=== PATIENT | female | born 1970 | race Caucasian/White ===

== ENCOUNTER 2017-03-01 18:23 | Emergency (ER) | payer BC ==
[2017-03-01 19:05] LABS: #Eosinphils 0.1 thou/uL (0.0-0.7); #Lymphocytes 1.8 thou/uL (1.20-3.40); #Monocytes 0.5 thou/uL (0.11-0.59); %Basophils 0.4 % (0.0-1.0); %Eosinophils 0.7 % (0.0-10.0); %Lymphocytes 24.1 % (21.0-51.0); %Monocytes 7.1 % (0.0-10.0); %Neutrophils 67.7 % (42.0-75.0); Hemoglobin 14.4 g/dL (12.0-16.0); Mean Corpuscular HGB CONC 33.4 g/dL (32.0-36.0); Mean Corpuscular Hemoglobin 32.4 pg (27.0-31.0); Mean Corpuscular Volume 97.2 fl (81.0-99.0); Mean Platelet Volume 7.8 fL (7.4-10.4); Platelet Count 243 thou/uL (130-400); RBC Distribution Width 12.3 % (11.5-14.5); Red Blood Cell (RBC) Count 4.43 mill/uL (4.20-5.40); White Blood Cell (WBC) Count 7.4 thou/uL (4.8-10.8)
[2017-03-01 19:14] LABS: PTT 32.8 SEC (22.9-36.1); Prothrombin Time 13.6 SEC (12.0-14.7)
[2017-03-01 19:26] LABS: ALT (SGPT) 15 U/L (8-55); AST (SGOT) 16 U/L (5-34); Albumin 4.2 g/dL (3.5-5.0); Alkaline Phosphatase 80 U/L (40-150); Anion Gap 12 mmol/L (10-20); BUN (Urea Nitrogen) 13 mg/dL (7.0-18.7); Bilirubin, Total 0.4 mg/dL (0.2-1.2); Calc. Creatinine Clearance 0 mL/min (70-130); Calcium 9.3 mg/dL (7.8-10.44); Carbon Dioxide 23 mmol/L (22-29); Chloride 108 mmol/L (98-107); Estimated GFR-MDRD Greater than 90; Globulin 3.1 g/dL (2.4-3.5); Glucose 98 mg/dL (70-105); Potassium 4.2 mmol/L (3.5-5.1); Protein, Total 7.3 g/dL (6.0-8.3); Sodium 139 mmol/L (136-145)
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
[2017-03-01] MEDS ORDERED: Fentanyl 100 MCG/2 ML VIAL ONE (21:04)
[2017-03-01] MEDS ORDERED: Ondansetron ODT 8 MG TAB ONE (21:32)
== END 2017-03-01 21:30 | disposition home or self-care (01) ==
LOC: ERS 18:23
DX: S06.2X0A Diffuse traumatic brain injury without loss of consciousness, initial encounter (principal); F25.9 Schizoaffective disorder, unspecified; W22.8XXA Striking against or struck by other objects, initial encounter
CPT/HCPCS: 36415; 70450; 80053; 85025; 85610; 85730; 96374; J3010

== ENCOUNTER 2017-03-26 22:12 | Emergency (ER) | payer BC ==
[2017-03-26] MEDS ORDERED: Acetaminophen 500 MG TAB ONE (23:19)
--- NOTE | 2017-03-26 23:56 | RAD ---
AP PELVIS AND RIGHT HIP THREE VIEWS: 03/26/17 HISTORY: Right hip pain. Pelvic ring is intact. SI joints are symmetric. No significant joint space narrowing of the right hip . IMPRESSION: Unremarkable right hip. POS: [facility]
--- NOTE | 2017-03-26 23:56 | RAD ---
LEFT SHOULDER THREE VIEWS: 03/26/17 HISTORY: Shoulder pain. There is no signs of fracture or dislocation. IMPRESSION: Negative left shoulder. POS: [facility]
[2017-03-27] MEDS ORDERED: Ketorolac Tromethamine 60 MG/2 ML VIAL ONE (02:55)
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
[2017-03-27] MEDS ORDERED: ISOVUE-370 76%-LOCM 1 ML ONE (12:56)
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
== END 2017-03-27 03:09 | disposition home or self-care (01) ==
LOC: ERS 22:12
DX: M79.1 Myalgia (principal); F25.9 Schizoaffective disorder, unspecified; Y04.0XXA Assault by unarmed brawl or fight, initial encounter
CPT/HCPCS: 70450; 70498; 72125; 96374; J1885

== ENCOUNTER 2017-05-13 19:14 | Emergency (ER) | payer BC ==
[2017-05-13] MEDS ORDERED: HYDROcodone/Acetaminophen 10/325 mg Tablet ONE (20:09)
[2017-05-13] MEDS ORDERED: Ketorolac Tromethamine 60 MG/2 ML VIAL ONE (20:09)
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
== END 2017-05-13 21:07 | disposition home or self-care (01) ==
LOC: ERS 19:14
DX: S33.5XXA Sprain of ligaments of lumbar spine, initial encounter (principal); F25.9 Schizoaffective disorder, unspecified; Z79.891 Long term (current) use of opiate analgesic; Y04.2XXA Assault by strike against or bumped into by another person, initial encounter
CPT/HCPCS: 72100; 96372; 99406; J1885

== ENCOUNTER 2017-05-19 13:39 | Outpatient (CLI) | payer BC ==
[~2017-05-19 13:39] MED LIST: Gadobenate Dimeglumine 529 MG/1 ML (20ML VIAL) ONE
--- NOTE | 2017-05-19 16:23 | RAD ---
FOUR VIEWS LUMBAR SPINE: Indication: Acute low back pain. FINDINGS: There are five lumbar type vertebrae. There is mild multilevel disc degenerative disease most pronoun bg at L4-5 and L5-S1. Spinal alignment is preserved. No abnormal translation of motion is evident. IMPRESSION: Mild to moderate spondylosis of the lumbar spine. POS: [facility]
--- NOTE | 2017-05-19 18:27 | MRI ---
MRI LUMBAR SPINE WITHOUT CONTRAST: INDICATIONS: History of falls. Low back pain. History of lumbar spine surgery. COMPARISON: Lumbar radiograph dated 05/13/2017. TECHNIQUE: Multiplanar, multisequence MR images were obtained of the lumbar spine without IV contrast. FINDINGS: There are five lumbar type vertebrae. The bone marrow signal intensity appears within normal limits. There is loss of normal disk signal and height at L4-L5 and at L5-S1. The conus seems to terminate a t approximately L1-L2. At the L5-S1 level, there is a broad-based bulge with a superimposed central to right paracentral dis k protrusion, causing mild to moderate right lateral recess narrowing. There is also a heterogeneous but predominantly T2 hypointense, T1 intermediate signal intensity lesion seen within the dural spac e, at the L5-S1 level, extending caudad along the posterior aspect of S1, which cannot be fully valdemar cterized. It measures approximately 2.4 cm. There is a broad-based bulge and facet hypertrophy at L 5-S1, inducing severe left and mild to moderate right neural foraminal narrowing. At L4-L5, there is a broad-based bulge with facet joint degenerative change and loss of disk space he ight, inducing mild bilateral neural foraminal narrowing. At L3-L4, there is a broad-based bulge without appreciable central canal or neural foraminal narrowin g. At L2-L3, there is a mild broad-based bulge without appreciable central canal or neural foraminal yolette rowing. At L1-L2, there is no appreciable central canal or neural foraminal narrowing. At T12-L1, there is no appreciable central canal or neural foraminal narrowing. There is a small, benign appearing hemangioma within the right aspect of T12. IMPRESSION: 1. Intradural extramedullary signal abnormality seen within the central canal of L5-S1 and the super ior aspect of S1. This is incompletely characterized. A follow-up MRI of the lumbar spine with and without contrast is recommended for additional characterization. Findings may reflect a solid tumor, such as an epidermoid or meningioma. Schwannoma or sequestered disc fragment cannot be entirely exc luded. Flow void artifact from the cerebrospinal fluid is felt to be less likely. 2. Broad-based bulge with facet hypertrophy at L5-S1, inducing severe left and mild to moderate righ t neural foraminal narrowing. There is a right paracentral protrusion at L5-S1, inducing mild to mod erate right lateral recess narrowing. 3. Mild bilateral neural foraminal narrowing at L4-L5 due to a broad-based bulge, facet hypertrophy, and loss of disk space height. CODE T POS: [facility]
--- NOTE | 2017-05-19 18:49 | MRI ---
BRAIN MRI WITH AND WITHOUT CONTRAST: 05/19/2017 HISTORY: Evaluate hyperdense intracranial lesions in the right frontal lobe, seen on prior CT exam. COMPARISON: None. TECHNIQUE: Multiplanar, multisequence MR imaging of the brain obtained with and without contrast. FINDINGS: The diffusion-weighted imaging demonstrates no evidence for acute infarction. There are three lesions demonstrating prominent blooming artifact on the gradient echo imaging. Two of these lesions are in the region of the frontal horn of the right lateral ventricle, and the third is along the posteromedial aspect of the right frontal region. The largest lesion is the lesion lazaro g the posteromedial aspect of the right frontal lobe, measuring 1 cm in transverse dimension. This l esion demonstrates central T2 and FLAIR hyperintensity with a subtle T2 hyperintense peripheral rim. It is slightly T1 hyperintense on pre-contrast imaging and may demonstrate mild internal enhancement . The two lesions in the region of the frontal horn of the right lateral ventricle measure 7 mm and 8 mm, respectively. Both these lesions demonstrate vague peripheral T1 hypointensity and mild internet project manager al enhancement. Adjacent to these lesions, within the posteromedial aspect of the right frontal lobe , extending into the region of the right lateral ventricle, is a prominent branching vascular structu re, suggesting developmental venous anomaly. The imaged paranasal sinuses and mastoid air cells appear well aerated. Arterial flow voids at the a xial level of the skull base appear grossly unremarkable on the T2-weighted imaging. No midline shif t or mass effect seen. IMPRESSION: Three intraaxial lesions are seen clustered in the right frontal region with adjacent prominent devel opmental venous anomaly. 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 No acute infarction or intracranial hemorrhage noted. POS: [facility]
== END 2017-05-19 13:40 | disposition home or self-care (01) ==
LOC: SCSMRI 13:39
PROVIDERS: ATTEND Surgery
DX: M54.5 Low back pain (principal); G93.9 Disorder of brain, unspecified; M51.87 Other intervertebral disc disorders, lumbosacral region; M47.897 Other spondylosis, lumbosacral region; M99.53 Intervertebral disc stenosis of neural canal of lumbar region; M99.54 Intervertebral disc stenosis of neural canal of sacral region
CPT/HCPCS: 70553; 72110; 72148; A9579

== ENCOUNTER → 2017-06-26 | Day surgery (SDC) | payer BC ==
[~2017-06-26] MED LIST changes: -Gadobenate Dimeglumine 529 MG/1 ML (20ML VIAL) ONE; +Iopamidol-M 200 41% 20 ML VIAL ONE
[2017-06-26 08:02] VITALS: TEMP 98.3
[2017-06-26 08:03] VITALS: BMI 21.6
[2017-06-26 08:07] VITALS: BP 115/72
--- NOTE | 2017-06-26 10:44 | RAD ---
LUMBAR SPINE MYELOGRAM INDICATION: Lumbar radiculopathy. PROCEDURE: After informed consent had been obtained, the patient was escorted to the interventional suite and pl aced on the procedural table. Acid Wash Operator imaging was performed. The patient was placed into a prone posi tion. Skin on the low back was then prepped and draped in the standard sterile fashion and topical a nd regional soft tissue anesthesia was achieved with 1% lidocaine and sodium bicarbonate. L4, left interlaminar approach was selected, and a 22 gauge needle was uneventfully advanced into the thecal s ac with clear color CSF. Subsequently, 10 cc Isovue M 200 was instilled into the thecal sac under re al time fluoroscopy. Appropriate opacification of thecal sac demonstrated with imaging stored for co nfirmation. The needle was then removed from the patient. The patient tolerated the procedure well and was then transferred to CT to undergo subsequent myelogram. Reference separate report for full d etails. FLUORO DATA: 0.3 minutes intermittent fluoroscopy. Dose 33.8 mGy*^m2. IMPRESSION: Technically successful lumbar spine myelogram as detailed above. POS: [facility]
--- NOTE | 2017-06-26 13:13 | MRI ---
THORACIC SPINE MRI WITH AND WITHOUT CONTRAST: INDICATIONS: Back pain. Radiculopathy. Lesion of lumbar spine. FINDINGS: There is no pathologic intramedullary expansion or signal alteration, or enhancement of the thoracic spinal cord. There are incidental mild disk bulges at T5-T6 and at T8-T9, effacing the ventral theca l sac. No acute marrow edema. No significant paraspinal soft tissue edema. IMPRESSION: 1. No pathologic intramedullary signal alteration of the thoracic spinal cord. 2. Incidental disk degenerative disease of the thoracic spine with effacement of the ventral thecal sac. POS: [facility]
--- NOTE | 2017-06-26 13:20 | MRI ---
MRI LUMBAR SPINE WITH AND WITHOUT CONTRAST: CLINICAL HISTORY: Lumbar spine lesion. History of lumbar radiculopathy and pain. COMPARISON: Reference is made to preceding myelogram performed earlier the same day as well as a prior, recent [facility] spine MRI. FINDINGS: There is persistence of abnormal signal alteration centered within the right lateral aspect of the L5 -S1 level vertebral canal. This demonstrates avid, plaque-like, infiltrating morphology of enhanceme nt. This enhancement is separate from a right subarticular disk protrusion, although the enhancement does encase the posterior aspect in addition to extending along the right lateral and posterior colu mn of the vertebral canal. Within the laterally-located abnormal enhancement, there is a punctate fo cus of hypoenhancement. This is favored to reflect a tiny disk sequestration occupying the right lat eral aspect of the vertebral canal, medial to the right L5-S1 facet. Avid enhancement traverses late rally to the right, within the right foramen. No pathologic intramedullary enhancement at the level of conus medullaris. There is degenerative disk disease at L4-5 and L5-S1 with the associated right subarticular disk prot rusion at L5-S1 described above, as well as disk bulge of the L4-5 level. IMPRESSION: Findings most consistent with prominent inflammatory granulation tissue, L5-S1 level, encompassing a punctate focus of hypoenhancement consistent with tiny disk sequestration, separate from right subart icular zone disk protrusion. Constellation of findings does result in moderate mass effect of the te rminal thecal sac with leftward shift of the terminal thecal sac within the vertebral canal. POS: [facility]
--- NOTE | 2017-06-26 13:35 | MRI ---
CERVICAL SPINE MRI WITH AND WITHOUT CONTRAST: INDICATIONS: Lesion of lumbar spine. Back pain. Radiculopathy. FINDINGS: There is no pathological signal alteration, or enhancement, of the cervical spinal cord. There is in cidental note of disk degenerative disease at the C5-C6 level, which results in mild ventral cord fla ttening and mild central canal stenosis, as a result of broad-based disk osteophyte. Focal kyphosis is centered at C5-C6. There are intrinsic foci of T1 hyperintense signal of the regional marrow, favoring interosseous roverto ngiomas. IMPRESSION: 1. No pathologic signal alteration of the cervical spinal cord. 2. Incidental note of degenerative change of the C5-C6 level, resulting in mild ventral cord effacem ent, as a result of disk osteophyte complex. 3. Uncinate process hypertrophy at this level also produces mild left foraminal narrowing and minima l right foraminal narrowing. POS: [facility]
--- NOTE | 2017-06-27 07:26 | CT ---
LUMBAR SPINE CT WITH CONTRAST: CT LUMBAR MYELOGRAM: CLINICAL INDICATIONS: Mass of the vertebral canal with history of lower extremity radiculopathy. FINDINGS: The conus medullaris demonstrates appropriate termination at the L1-L2 level. The vertebral body hei ghts are maintained. There is mild endplate osteophytosis and slight disk degenerative narrowing of the L4-L5 level. There is mild disk space narrowing with gas vacuum phenomenon at L5-S1. A slight d egree of retrolisthesis at L5-S1 is present. From the T12-L1 through the L3-L4 level, there is no significant extrinsic mass effect upon the theca l sac or neural foramina. L4-L5: Broad-based disk bulge results in mild to moderate central canal stenosis. There is mild shanika ateral neural foraminal narrowing. L5-S1: There is a plaque-like filling defect, status post contrast opacification in the thecal sac, which is centered about the right subarticular zone, abutting site of disc protrusion, and spans the AP diameter of the right aspect of the vertebral canal and is inseparable from the adjacent nerve neri ts, with effacement of the right side L5 nerve roots. This produces marked narrowing of the right kaur barticular zone and medial right foraminal zone. There is mild retrolisthesis of L5 on S1. Moderate left foraminal narrowing is present. IMPRESSION: Mass-effect is confirmed at the L5-S1 level, demonstrating an extradural location, effacing adjacent nerve roots and inseparable from medial structures of the traversing right neural foramen. The mass is plaque-like in morphology and does result in mass effect upon the terminal thecal sac, which is di splaced to the left within the vertebral canal. This favors a prominent degree of granulation tissue /inflammatory response. Recommend MRI with Gadolinium contrast to further evaluate the enhancement ch aracteristics. POS: [facility]
== END ==
LOC: RAD 07:10 → EDSTATUS 08:00
PROVIDERS: ATTEND Surgery
PROC: B01B1ZZ Fluoroscopy of Spinal Cord using Low Osmolar Contrast (ICD-10-PCS; principal; 2017-06-26)
DX: M54.16 Radiculopathy, lumbar region (principal); M89.9 Disorder of bone, unspecified; D49.2 Neoplasm of unspecified behavior of bone, soft tissue, and skin; Z79.899 Other long term (current) drug therapy; Z88.2 Allergy status to sulfonamides; Z88.1 Allergy status to other antibiotic agents; Z91.040 Latex allergy status
CPT/HCPCS: 62304; 72132; 72156; 72157; 72158

== ENCOUNTER 2017-06-27 22:34 | Emergency (ER) | payer BC | END 2017-06-28 00:09 | disposition home or self-care (01) | LOC: ERS 22:34 | DX: S16.1XXA Strain of muscle, fascia and tendon at neck level, initial encounter (principal); S20.311A Abrasion of right front wall of thorax, initial encounter; S40.811A Abrasion of right upper arm, initial encounter; F41.9 Anxiety disorder, unspecified; F32.9 Major depressive disorder, single episode, unspecified; Y04.2XXA Assault by strike against or bumped into by another person, initial encounter | CPT/HCPCS: 99284 ==

== ENCOUNTER 2017-07-18 10:39 | Outpatient (CLI) | payer BC ==
[2017-07-18 10:50] VITALS: BMI 25.3
[2017-07-18 11:46] LABS: Hemoglobin 14.3 g/dL (12.0-16.0); Mean Corpuscular HGB CONC 34.2 g/dL (32.0-36.0); Mean Corpuscular Hemoglobin 32.1 pg (27.0-31.0); Mean Corpuscular Volume 93.9 fl (81.0-99.0); Mean Platelet Volume 8.1 fL (7.4-10.4); Platelet Count 279 thou/uL (130-400); RBC Distribution Width 11.8 % (11.5-14.5); Red Blood Cell (RBC) Count 4.45 mill/uL (4.20-5.40); White Blood Cell (WBC) Count 7.4 thou/uL (4.8-10.8)
[2017-07-18 11:50] LABS: PTT 30.6 SEC (22.9-36.1); Prothrombin Time 13.2 SEC (12.0-14.7)
[2017-07-18 11:51] LABS: BHCG - Serum Negative (NEGATIVE); Pregs Control Background? CLEAR/WHITE (CLR/WHITE); Pregs Control Bar Appear? YES (CONTROL BAR)
[2017-07-18 12:12] LABS: Anion Gap 10 mmol/L (10-20); BUN (Urea Nitrogen) 8 mg/dL (7.0-18.7); Calc. Creatinine Clearance 88 mL/min (70-130); Calcium 9.4 mg/dL (7.8-10.44); Carbon Dioxide 28 mmol/L (22-29); Chloride 105 mmol/L (98-107); Estimated GFR-MDRD 81; Glucose 87 mg/dL (70-105); Potassium 3.9 mmol/L (3.5-5.1); Sodium 139 mmol/L (136-145)
--- NOTE | 2017-07-18 22:16 | EKG ---
Test Reason : Blood Pressure : / mmHG Vent. Rate : 072 BPM Atrial Rate : 072 BPM P-R Int : 102 ms QRS Dur : 074 ms QT Int : 396 ms P-R-T Axes : 037 046 -06 degrees QTc Int : 433 ms Sinus rhythm with short DE Low voltage QRS Cannot rule out Anterior infarct , age undetermined Abnormal ECG No previous ECGs available Confirmed by MITUL WESLEY, DR. Ventura ([id number]) on 07/18/2017 10:16:25 PM Referred By: SHANNON Confirmed By:DR. Audrey BAUMAN MD
== END 2017-07-18 10:40 | disposition home or self-care (01) ==
LOC: LABBT 10:39
PROVIDERS: ATTEND Surgery
DX: Z01.818 Encounter for other preprocedural examination (principal); M54.16 Radiculopathy, lumbar region; M48.061 Spinal stenosis, lumbar region without neurogenic claudication
CPT/HCPCS: 80048; 84703; 85027; 85610; 85730; 93005; 93010

== ENCOUNTER 2017-07-22 10:03 | Day surgery (SDC) | payer BC ==
[2017-07-22] MEDS ORDERED: Sodium Chloride 0.9% 10 ML ONE (10:09)
[2017-07-22] MEDS ORDERED: Fentanyl 100 MCG/2 ML VIAL ONE ×5 (11:02→16:22)
[2017-07-22] MEDS ORDERED: Midazolam HCl 2 mg/2 ml Vial ONE (11:05)
[2017-07-22] MEDS ORDERED: CEFAZOLIN/Water 2 GM/20 ML SYRINGE ONE (11:05)
[2017-07-22] MEDS ORDERED: Bacitracin Zinc Ointment 30 gm TUBE ONE (11:58)
[2017-07-22] MEDS ORDERED: Thrombin 5000 UNITS/5 ML VIAL ONE (11:58)
[2017-07-22] MEDS ORDERED: Dexamethasone 20 MG/5 ML VIAL ONE (13:46)
[2017-07-22] MEDS ORDERED: PROPOFOL 200 MG/20 ML VIAL ONE (13:46)
[2017-07-22] MEDS ORDERED: PHENYLEPHRINE-NS 100 MCG/ML 10 ML SYRINGE ONE (13:46)
[2017-07-22] MEDS ORDERED: diphenhydrAMINE 50 MG/ML VIAL ONE (13:46)
[2017-07-22] MEDS ORDERED: Metoclopramide HCl 10 MG/2 ML VIAL ONE (13:46)
[2017-07-22] MEDS ORDERED: Glycopyrrolate 0.2 MG/ML 5 ML SYRINGE ONE (13:46)
[2017-07-22] MEDS ORDERED: Ketorolac Tromethamine 30 MG/ML VIAL ONE (13:46)
[2017-07-22] MEDS ORDERED: Lidocaine 1% PF 5 ML VIAL ONE (13:46)
[2017-07-22] MEDS ORDERED: Ondansetron HCl/PF 4 MG/2 ML Vial ONE (13:46)
--- NOTE | 2017-07-22 15:00 | OP ---
OR: 12 WOUND TYPE: Type 1 wound. SURGEON: Shantanu Eagle M.D. HYPERBARIC NURSE: Adriano Tubbs PA-C. PREPROCEDURE DIAGNOSES: Right L5-S1 disk extrusion with right S1 radiculopathy with left L5-S1 far l ateral disk extrusion with left L5 radiculopathy with proximal adjacent segment lumbar stenosis, resu lting in low back and leg pain. POSTPROCEDURE DIAGNOSES: Right L5-S1 disk extrusion with right S1 radiculopathy with left L5-S1 far lateral disk extrusion with left L5 radiculopathy with proximal adjacent segment lumbar stenosis, res ulting in low back and leg pain. PROCEDURES: 1. L4-L5 laminectomy, partial facetectomy, foraminotomy. 2. Left transfacet approach for left L5-S1 far lateral diskectomy to decompress exiting left L5 nerv e root. 3. Right L5-S1 hemilaminotomy, foraminotomy, and diskectomy to remove paracentral disk extrusion wit h compress in the right S1 nerve root. 4. Use of operative microscope for microdissection. 5. L5-S1 laminectomy, partial facetectomy. DESCRIPTION OF PROCEDURE: After informed consent was obtained from the patient, the patient was brou ght to OR 12. Proper patient pause and identification was carried out. She was placed in excellent general endotracheal anesthesia and positioned prone on the operating room table after proper patient pause and identification and induction of anesthesia with intubation. All appropriate points were p added, identified and appropriate trajectory to allow for approach to the L4, L5 and S1 dorsal spines and lamina. These regions were sterilely cleansed, prepared, and draped. Proper patient pause and identification was carried out. The wound was then opened with a combination of sharp, monopolar and blunt dissection. The L4, L5 and S1 dorsal spines, lamina and facet complexes were exposed. We the n performed L4-L5 laminectomy, partial facetectomy, and foraminotomy following localization film and then L5-S1 laminectomy, partial facetectomy, and foraminotomies. We then turned our attention to the right L5-S1 segment with the use of the operative microscope for microdissection, identified paracen tral disk material in the right S1 lateral recess compressing and traversing right S1 nerve root and multiple disk fragments were removed with excellent decompression of the right L5 and right S1 nerve roots along with the right L4 nerve roots. I then turned my attention to the left L5-S1 far lateral disk extrusion and via transfacet approach, performed a left L5-S1 diskectomy with decompression of t he exiting left L5 nerve root and identification of the exiting left L5 nerve root to ensure it is fr eedom throughout the left L5 foramen. I then assured freedom of the left S1 nerve root and this nerv e root was nice and free. Copious irrigation occurred throughout. Hemostasis was maximized. The wo und was then closed in anatomic layers following sprinkle vancomycin powder. The patient then emerge d from anesthesia.
[2017-07-22] MEDS ORDERED: Bisacodyl 10 MG SUPP PR PRN (15:21)
[2017-07-22] MEDS ORDERED: Milk Of Magnesia 30 ML UDCUP PO PRN (15:21)
[2017-07-22] MEDS ORDERED: Morphine 4 MG/ML VIAL SLOW IVP PRN (15:21)
[2017-07-22] MEDS ORDERED: Mag-Al 1200 mg/1200 mg/30 ML UDCUP PO PRN (15:21)
[2017-07-22] MEDS ORDERED: Promethazine HCl 25 MG/ML VIAL IM PRN ×2 (15:21→15:59)
[2017-07-22] MEDS ORDERED: Fleet Enema 133 ML BOT PR PRN (15:21)
[2017-07-22] MEDS ORDERED: Acetaminophen 325 MG TAB PO PRN (15:21)
[2017-07-22] MEDS ORDERED: traMADol HCl 50 MG TAB PO PRN (15:21)
[2017-07-22] MEDS ORDERED: Ondansetron HCl/PF 4 MG/2 ML Vial IVP PRN (15:59)
[2017-07-22] MEDS ORDERED: Promethazine HCl 25 MG/ML VIAL SLOW IVP PRN (15:59)
[2017-07-22 17:07] VITALS: BMI 25.3
[2017-07-22] MEDS: HYDROcodone/Acetaminophen 7.5/325 mg Tablet PO PRN (17:23)
[2017-07-22] MEDS: tiZANidine HCl 4 MG TAB PO PRN ×2 (17:23→23:23)
[2017-07-22] MEDS: Sodium Chloride 0.9% 1,000 ML IV SCH (17:40)
[2017-07-22] MEDS: CEFAZOLIN/Water 2 GM/20 ML SYRINGE SLOW IVP SCH (18:12)
[2017-07-22] MEDS: Acetaminophen/Codeine 30-300mg Tablet PO PRN (20:42)
[2017-07-23] MEDS: CEFAZOLIN/Water 2 GM/20 ML SYRINGE SLOW IVP SCH (02:40)
[2017-07-23] MEDS: Acetaminophen/Codeine 30-300mg Tablet PO PRN ×2 (02:40→06:44)
[2017-07-23] MEDS: Sodium Chloride 0.9% 1,000 ML IV SCH (04:16)
[2017-07-23] MEDS: tiZANidine HCl 4 MG TAB PO PRN ×2 (05:25→11:15)
[2017-07-23 08:40] VITALS: TEMP 98.7
--- NOTE | 2017-07-23 11:02 | PRG ---
DATE OF SERVICE: 07/23/2017 SUBJECTIVE: The patient is postoperative day #01 from L4-S1 decompression with right L5-S1 diskectom y and left L5-S1 far lateral diskectomy. She is doing well with improvement in her leg pain and has no paresthesias or dysesthesias into her lower extremities with good strength. She has already been mobilizing. We went over intra and postoperative issues. We will arrange dismissal.
[2017-07-23] MEDS: HYDROcodone/Acetaminophen 7.5/325 mg Tablet PO PRN (11:15)
[2017-07-23 12:24] VITALS: BP 124/88
== END 2017-07-23 13:30 | disposition home or self-care (01) ==
LOC: SDC 10:03 → SURG B 15:21 → SDC 07-23 13:30
PROVIDERS: ATTEND Surgery
PROC: 0SB20ZZ Excision of Lumbar Vertebral Disc, Open Approach (ICD-10-PCS; principal; 2017-07-23)
PROC: 0SB40ZZ Excision of Lumbosacral Disc, Open Approach (ICD-10-PCS; principal; 2017-07-23)
PROC: 01NB0ZZ Release Lumbar Nerve, Open Approach (ICD-10-PCS; principal; 2017-07-23)
DX: M51.17 Intervertebral disc disorders with radiculopathy, lumbosacral region (principal); M48.061 Spinal stenosis, lumbar region without neurogenic claudication; Z79.899 Other long term (current) drug therapy; Z88.2 Allergy status to sulfonamides; Z88.8 Allergy status to other drugs, medicaments and biological substances; Z91.040 Latex allergy status
CPT/HCPCS: 76001; 96374; A4216; J1100; J1200; J1885; J2001; J2250; J2405; J2704; J2765; J3010; J3370; J3490

== ENCOUNTER 2018-10-08 08:53 | Emergency (ER) | payer BC, SELFPAY ==
[2018-10-08 09:18] LABS: Bilirubin Negative (Negative); Blood, Urine Negative (Negative); Clarity Clear (Clear); Glucose, Urine (Dipstick) Normal (Negative); Leukocyte Negative Leu/uL (Negative); Nitrite Negative (Negative); Protein, Urine (Dipstick) Negative (Neg-Trace); Urobilinogen Normal mg/dL (Less than 2)
[2018-10-08 10:21] LABS: #Basophils 0.1 thou/uL (0.0-0.2); #Eosinphils 0.1 thou/uL (0.0-0.7); #Lymphocytes 2.1 thou/uL (1.20-3.40); #Monocytes 0.5 thou/uL (0.11-0.59); #Neutrophils 4.7 thou/uL (1.40-6.50); %Basophils 0.8 % (0.0-1.0); %Eosinophils 1.2 % (0.0-10.0); %Lymphocytes 27.8 % (21.0-51.0); %Monocytes 6.6 % (0.0-10.0); %Neutrophils 63.6 % (42.0-75.0); Hemoglobin 14.3 g/dL (12.0-16.0); Mean Corpuscular HGB CONC 33.7 g/dL (32.0-36.0); Mean Corpuscular Hemoglobin 31.9 pg (27.0-31.0); Mean Corpuscular Volume 94.7 fL (78.0-98.0); Mean Platelet Volume 8.1 fL (7.4-10.4); Platelet Count 275 thou/uL (130-400); RBC Distribution Width 11.8 % (11.5-14.5); Red Blood Cell (RBC) Count 4.49 mill/uL (4.20-5.40); White Blood Cell (WBC) Count 7.5 thou/uL (4.8-10.8)
[2018-10-08 10:41] LABS: ALT (SGPT) 19 U/L (8-55); AST (SGOT) 19 U/L (5-34); Albumin 4.5 g/dL (3.5-5.0); Alkaline Phosphatase 106 U/L (40-150); Anion Gap 13 mmol/L (10-20); BUN (Urea Nitrogen) 9 mg/dL (7.0-18.7); Bilirubin, Total 0.3 mg/dL (0.2-1.2); Calc. Creatinine Clearance 0 mL/min (70-130); Calcium 9.9 mg/dL (7.8-10.44); Carbon Dioxide 25 mmol/L (22-29); Chloride 105 mmol/L (98-107); Estimated GFR-MDRD 85; Globulin 3.3 g/dL (2.4-3.5); Glucose 88 mg/dL (70-105); Potassium 4.2 mmol/L (3.5-5.1); Protein, Total 7.8 g/dL (6.0-8.3); Sodium 139 mmol/L (136-145)
--- NOTE | 2018-10-08 12:25 | CT ---
EXAM: CT ABDOMEN AND PELVIS HISTORY: Bladder spasm. Frequency of urination, x1 month. Worsening today. COMPARISON: None. Procedure: Multiple contiguous axial images were obtained and a CT of the abdomen and pelvis with IV contrast. C oronal reformats were performed. FINDINGS: Lower Chest: within normal limits. Vessels: Normal caliber aorta. No periaortic fat stranding. Heart: Normal heart size. No significant pericardial fluid Abdomen: Portal vein:Patent Gallbladder: No calcified gallstones. Normal caliber wall. Liver: within normal limits. Pancreas: within normal limits. Spleen: within normal limits. Adrenals: within normal limits. Kidneys: Symmetric enhancement. No evidence of left-sided obstructive uropathy. Mild dilatation of th e right intrarenal collecting system and right ureter. There is mild enhancement of the mid and distal right ureter with periureteral fat stranding. At the right ureterovesicular junction, there is a rectangular calcification measuring 0.6 cm in maximum dimension. There does appear to be mucosal thickening and probably was a reactive changes in the right ureterovesicular junction. Peritoneum: No ascites or free air, no fluid collection. Bowel: No evidence of bowel obstruction. Occasional diverticulum. No diverticulitis. Surgically absen t appendix. Mesentery and Retroperitoneum: Nonspecific mildly enlarged mesenteric lymph nodes. Correlate for mese nteric lymphadenitis. Supervisor [employer] enlarged lymph node is noted in the right lower quadrant measures 1.2 cm. Abdominal Wall: within normal limits. Pelvis: Reproductive Organs: Uterus and adnexal structures are unremarkable. Soft tissue fullness at the leve l of the ureteral lower uterine segment and cervix. Pelvis: within normal limits. Bladder: within normal limits. Bones: within normal limits. IMPRESSION: 1. Mild right sided obstructive uropathy secondary to a dense rectangular calculus in the right urete rovesicular junction. 2. Mildly enlarged mesenteric lymph nodes. Correlate for mesenteric lymphadenitis. 2. Soft tissue fullness of the cervix/lower uterine segment. Consider pelvic examination for further evaluation.
[2018-10-08] MEDS ORDERED: Ketorolac Tromethamine 30 MG/ML VIAL ONE (13:01)
[2018-10-08] MEDS ORDERED: Iopamidol 370 76% 100 ML VIAL ONE (15:59)
[2018-10-08] MEDS ORDERED: Iopamidol 370 76% 50 ML VIAL FS ONE (15:59)
== END 2018-10-08 13:10 | disposition home or self-care (01) ==
LOC: ERS 08:53
DX: N20.9 Urinary calculus, unspecified (principal); F41.9 Anxiety disorder, unspecified; F32.9 Major depressive disorder, single episode, unspecified; F25.9 Schizoaffective disorder, unspecified
CPT/HCPCS: 36415; 74177; 80053; 81003; 85025; 96374; J1885

== ENCOUNTER 2018-11-26 16:16 | Emergency (ER) | payer SELFPAY ==
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
[2018-11-26] MEDS ORDERED: traMADol HCl 50 MG TAB ONE (17:13)
== END 2018-11-26 17:25 | disposition home or self-care (01) ==
LOC: ERS 16:16
DX: S63.502A Unspecified sprain of left wrist, initial encounter (principal); S53.402A Unspecified sprain of left elbow, initial encounter; F41.9 Anxiety disorder, unspecified; F32.9 Major depressive disorder, single episode, unspecified; F25.9 Schizoaffective disorder, unspecified; Z79.899 Other long term (current) drug therapy; W18.30XA Fall on same level, unspecified, initial encounter

== ENCOUNTER 2018-12-01 12:21 | Emergency (ER) | payer SELFPAY ==
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
[2018-12-01] MEDS ORDERED: HYDROcodone/Acetaminophen 5/325 mg Tablet ONE (13:51)
== END 2018-12-01 15:37 | disposition home or self-care (01) ==
LOC: ERS 12:21
DX: M25.562 Pain in left knee (principal); F41.9 Anxiety disorder, unspecified; F32.9 Major depressive disorder, single episode, unspecified; F25.9 Schizoaffective disorder, unspecified; Z79.899 Other long term (current) drug therapy

== ENCOUNTER 2019-11-14 15:03 | Observation (INO) | payer OTHER ==
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
[2019-11-14] MEDS ORDERED: Morphine 4 MG/ML VIAL ONE (16:58)
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
--- NOTE | 2019-11-14 17:08 | RAD ---
XR Shoulder Rt 3 View STANDARD History: Injury Comparison: None. Findings: No acute fracture or malalignment. Ribs are intact. Impression: No acute fracture or malalignment.
[2019-11-14] MEDS ORDERED: Ketorolac Tromethamine 30 MG/ML VIAL ONE (17:43)
[2019-11-14 17:48] LABS: #Basophils 0.1 thou/uL (0.0-0.2); #Monocytes 0.6 thou/uL (0.11-0.59); %Basophils 0.6 % (0.0-1.0); %Eosinophils 0.1 % (0.0-10.0); %Neutrophils 78.3 % (42.0-75.0); Hemoglobin 14.2 g/dL (12.0-16.0); Mean Corpuscular HGB CONC 34.7 g/dL (32.0-36.0); Mean Corpuscular Hemoglobin 32.5 pg (27.0-31.0); Mean Corpuscular Volume 93.7 fL (78.0-98.0); Mean Platelet Volume 9.5 fL (7.4-10.4); Platelet Count 254 thou/uL (130-400); Red Blood Cell (RBC) Count 4.38 mill/uL (4.20-5.40); White Blood Cell (WBC) Count 12.7 thou/uL (4.8-10.8)
[2019-11-14 18:09] LABS: ALT (SGPT) 18 U/L (8-55); AST (SGOT) 16 U/L (5-34); Albumin 4.7 g/dL (3.5-5.0); Alkaline Phosphatase 87 U/L (40-110); Anion Gap 17 mmol/L (10-20); BUN (Urea Nitrogen) 11 mg/dL (7.0-18.7); Bilirubin, Total 0.5 mg/dL (0.2-1.2); CK (CPK) 128 U/L (29-168); Calc. Creatinine Clearance 0 mL/min (70-130); Calcium 9.4 mg/dL (7.8-10.44); Carbon Dioxide 21 mmol/L (22-29); Chloride 106 mmol/L (98-107); Estimated GFR-MDRD 86; Glucose 94 mg/dL (70-105); Lipase 18 U/L (8-78); Potassium 3.8 mmol/L (3.5-5.1); Protein, Total 7.7 g/dL (6.0-8.3); Sodium 140 mmol/L (136-145)
[2019-11-14] MEDS ORDERED: Lorazepam 1 MG TAB ONE (18:34)
[2019-11-14] MEDS ORDERED: Aspirin Chewable 81 MG TAB ONE (19:18)
[2019-11-14] MEDS ORDERED: Acetaminophen 650 MG Suppository PR PRN (19:34)
[2019-11-14] MEDS ORDERED: Acetaminophen 325 MG TAB PO PRN (19:34)
[2019-11-14] MEDS ORDERED: Nitroglycerin 0.4 MG TAB (25 Tab Bottle) SL PRN (19:36)
[2019-11-14] MEDS ORDERED: Magnesium Oxide 400 MG TAB PO SCH (20:30)
[2019-11-14] MEDS ORDERED: Famotidine/PF 20 mg/2ml Vial SLOW IVP SCH (21:00)
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
[2019-11-14 21:12] LABS: Troponin I 0.011 ng/mL (< 0.028)
[2019-11-14 21:31] VITALS: BMI 28.5
[2019-11-14] MEDS ORDERED: traZODone HCl 50 MG TAB PO SCH (23:45)
[2019-11-15 00:57] LABS: Bacteria/HPF None Seen HPF (None Seen); Bilirubin Negative (Negative); Blood, Urine 2+ (Negative); Clarity Extra Turbid (Clear); Glucose, Urine (Dipstick) Normal (Negative); Ketone, Urine 40 mg/dL (Negative); Leukocyte 75 Leu/uL (Negative); Nitrite Negative (Negative); Protein, Urine (Dipstick) 50 mg/dL (Neg-Trace); RBC/HPF 0-3 HPF (0-3); Squamous Epithelial 21-50 HPF (0-3); WBC/HPF 21-50 HPF (0-3)
[2019-11-15 01:03] LABS: Amphetamine Not Detected (NotDetected); Barbiturates Screen Not Detected (NotDetected); Benzodiazepine Screen Detected (NotDetected); Cocaine Metabolite Screen Not Detected (NotDetected); Medtox Control Line Valid? VALID (VALID); Medtox Reader # READER 4; Methadone Not Detected (NotDetected); Methamphetamine Not Detected (NotDetected); Opiate Screen Not Detected (NotDetected); Oxycodone Screen Not Detected (NotDetected); Phencyclidine (PCP) Not Detected (NotDetected); THC/Cannabinoid Screen Detected (NotDetected); Tricyclic Screen Not Detected (NotDetected)
[2019-11-15 01:05] LABS: Urine Culture Reflex No No
[2019-11-15 04:51] LABS: #Basophils 0.1 thou/uL (0.0-0.2); #Eosinphils 0.1 thou/uL (0.0-0.7); #Lymphocytes 2.9 thou/uL (1.20-3.40); #Monocytes 0.7 thou/uL (0.11-0.59); #Neutrophils 4.2 thou/uL (1.40-6.50); %Basophils 0.9 % (0.0-1.0); %Lymphocytes 36.2 % (21.0-51.0); %Monocytes 8.9 % (0.0-10.0); Hemoglobin 13.6 g/dL (12.0-16.0); Mean Corpuscular Hemoglobin 32.2 pg (27.0-31.0); Mean Corpuscular Volume 94.8 fL (78.0-98.0); Mean Platelet Volume 9.2 fL (7.4-10.4); Platelet Count 223 thou/uL (130-400); RBC Distribution Width 12.1 % (11.5-14.5); Red Blood Cell (RBC) Count 4.21 mill/uL (4.20-5.40); White Blood Cell (WBC) Count 7.9 thou/uL (4.8-10.8)
[2019-11-15 05:10] LABS: Anion Gap 14 mmol/L (10-20); BUN (Urea Nitrogen) 14 mg/dL (7.0-18.7); Calc. Creatinine Clearance 105 mL/min (70-130); Calcium 8.9 mg/dL (7.8-10.44); Carbon Dioxide 22 mmol/L (22-29); Chloride 107 mmol/L (98-107); Cholesterol 183 mg/dl (< 200 Desired); Estimated GFR-MDRD 88; Glucose 96 mg/dL (70-105); HDL Cholesterol 46 mg/dL (>60 Neg Risk); LDL Cholesterol, Calculated 124 mg/dL; Potassium 3.3 mmol/L (3.5-5.1); Sodium 140 mmol/L (136-145); Triglycerides 66 mg/dL (Less than 150)
[2019-11-15] MEDS ORDERED: ALPRAZolam 0.25 MG TAB PO PRN (08:41)
[2019-11-15] MEDS ORDERED: Aspirin 81 mg Enteric Coated Tablet PO SCH (09:00)
[2019-11-15] MEDS ORDERED: Famotidine 20 MG TAB PO SCH (09:00)
[2019-11-15 11:56] VITALS: BP 112/71; TEMP 98.6
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
[2019-11-15] MEDS ORDERED: traZODone HCl 50 MG TAB PO SCH (21:00)
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
== END 2019-11-15 16:09 | disposition home or self-care (01) ==
LOC: ERS 15:03 → 2SW 18:51
PROVIDERS: ADMIT Family Medicine; ATTEND Family Medicine
DX: R07.89 Other chest pain (principal); R79.89 Other specified abnormal findings of blood chemistry; E87.6 Hypokalemia; M47.812 Spondylosis without myelopathy or radiculopathy, cervical region; G40.909 Epilepsy, unspecified, not intractable, without status epilepticus; F41.9 Anxiety disorder, unspecified; F32.9 Major depressive disorder, single episode, unspecified; F25.9 Schizoaffective disorder, unspecified; Z79.82 Long term (current) use of aspirin; Z79.899 Other long term (current) drug therapy; Z88.2 Allergy status to sulfonamides; Z88.8 Allergy status to other drugs, medicaments and biological substances; Z91.040 Latex allergy status; Y04.2XXA Assault by strike against or bumped into by another person, initial encounter
CPT/HCPCS: 36415; 70450; 70486; 71045; 72125; 80048; 80053; 80061; 80164; 80306; 81001; 82550; 82553; 83690; 83735; 84443; 84484; 85025; 93005; 93306; 94760; 96372; G0378; J1885; J2270

== ENCOUNTER 2020-06-04 11:27 | Emergency (ER) | payer SELFPAY ==
[2020-06-04] MEDS ORDERED: Ketorolac Tromethamine 30 MG/ML VIAL ONE (13:36)
== END 2020-06-04 14:00 | disposition home or self-care (01) ==
LOC: ERS 11:27
DX: S33.5XXA Sprain of ligaments of lumbar spine, initial encounter (principal); M25.562 Pain in left knee; X50.0XXA Overexertion from strenuous movement or load, initial encounter
CPT/HCPCS: 72100; 96372; J1885